=== PATIENT | female | born 1975 | race Caucasian/White ===

== ENCOUNTER 2021-10-05 10:46 | Outpatient (CLI) | payer MEDICARE, SELFPAY ==
--- NOTE | ~2021-10-05 | MR_ITS ---
EXAMINATION: MR brain/brain stem wo/w con DATE: 10/05/2021 11:39 INDICATION: Headache, unspecified. TECHNIQUE: Magnetic resonance imaging (MRI) of the brain and brainstem was performed without and with 20 mL MultiHance intravenous contrast. COMPARISON: None. FINDINGS: There are scattered areas of nonspecific increased T2-weighted signal intensity in the cere bral white matter and rebekah. There is no intracranial hemorrhage, acute infarction, or abnormal intrac ranial mass lesion. The ventricles are normal in size. There is mild mucosal thickening in sphenoid s inus. The mastoid air cells are normal. The orbits are normal. IMPRESSION: 1. Mild nonspecific cerebral white matter disease and pontine disease, which likely represents chroni c small vessel ischemic disease. Reviewed, dictated and finalized at location B. IMPRESSION: 1. Mild nonspecific cerebral white matter disease and pontine disease, which katja lin represents chronic small vessel ischemic disease.
[2021-10-05 11:16] LABS: Estimated Glomerular Filt Rate > 60
== END 2021-10-05 10:47 | disposition home or self-care (01) ==
LOC: ANHIMG 10:54
PROVIDERS: Visit Provider Psychiatry & Neurology Neurology
DX: R51.9 Headache, unspecified (principal); G89.29 Other chronic pain; R93.0 Abnormal findings on diagnostic imaging of skull and head, not elsewhere classified
CPT/HCPCS: 70553; A9577

== ENCOUNTER 2024-09-11 08:50 | Outpatient (CLI) | payer MEDICARE, SELFPAY ==
--- OUTSIDE RECORDS SUMMARY | 2024-09-11 09:16 | XMS_ITS | Encounter Summary ---
Author Organization [facility] Address [address] [place] [address] Care Team Providers Care Hogshead Filler Name Role Phone Gogo Perez MD Primary Care Provider [phone] Encounter Details Date Type Department Care Team (Late Contact Info) Description 02/23/2024 MyChart Message Enc [address] [address] Gogo Perez MD [address] [place] [address] Today s visit Social History Tobacco Use Types Packs/Day Years Used Date Smoking Tobacco: Every Day Cigarettes 1 25 Smokeless Tobacco: Never Comments:Last several years to currently smoking 1 cigarette a day. Alcohol Use Standard Drinks/Week Comments Yes 0 (1 standard drink = 0.6 oz pur e alcohol) Social drinker PHQ-2 Answer Date Recorded Patient Health Questionnaire-2 Score 1 02/23/2024 Comments No Sex and Gender Information Value Date Recorded Sex Assigned at Female 08/14/2024 11:33 AM CDT Legal Sex Female 7:56 PM CDT Gender Identity Not on file Sexual Orientation Not on file documented as of this encounter Plan of Treatment Upcoming Encounters Date Type Department Care Team (Late Contact Info) Description 09/25/2024 11:20 AM CDT Office Visit [address] [address] Gogo Perez MD [address] [place] [address] 12/28/2024 11:00 AM CDT Office Visit [facility] Multispecialty Care - [facility] [address] [facility] [address] [place] [address] Charlie Yates MD [address] [facility] [address] [place] [address] documented as of this encounter Visit Diagnoses Not on filedocumented in this encounter Additional Health Concerns Assessment Noted Time PHQ-9 Depression Total Score: 13 024 8:29 AM CDT documented as of this encounter Care Teams Hogshead Filler Relationship Specialty Start Date End Date Gogo Perez MD PCP - General FAMILY PRACTICE 05/20/22 documented as of this encounter
--- OUTSIDE RECORDS SUMMARY | 2024-09-11 09:16 | XMS_ITS | Clinical Summary ---
Author Organization [facility] Address [address] [place] [address] Care Team Providers Care Choir Member Name Role Phone Gogo Perez Primary Care Provider Dana lopez Source Comments [facility],non-owned Affiliates and Associated Physician Practices is amultiple site organization consisting of ambulatory clinics and hospital sitesin [place], [place], [place] and [place]. This disclosure is being madepursuant to the Care Everywhere program and may not contain all information available regarding this patient. Last updated 18.[facility] fflick Allergies Active Allergy Reactions Criticality Noted Date Comments Amoxicillin-Pot Clavulanate Dizziness 02/16/20 24 Codeine GI Discomfort 12/10/2018 Ibuprofen GI Discomfort 12/10/2018 Medications * Be aware that medications may not be up to date on this document. Alwaysverify current medications with the patient. Medication Sig Dispensed Refills Start Date End Date Status atenolol (Tenormin) 50 MG tablet Take 1 (one) tablet by mouth every 24 hours 04/02/2024 Active dicyclomine (Bentyl) 10 MG capsule Take 1 (one) capsule by mouth 2 times daily as needed 04/02/2024 Active famotidine (Pepcid) 20 MG tablet 1 (one) tablet 2 times daily Active potassium chloride ER (K-TAB) 20 MEQ tablet Take 1 (one) tablet by mouth once daily 04/02/2024 Active atorvastatin (Lipitor) 20 MG tablet Take 1 (one) tablet by mouth once daily 04/02/2024 Active chlorthalidone (Hygroton) 25 MG tablet Take 1 (one) tablet by mouth once daily 04/02/2024 Active lisinopril (Prinivil; Zestril) 20 MG tablet Take 1 (one) tablet by mouth once daily 04/02/2024 Active LORazepam (Ativan) 0.5 MG tablet Take 1 (one) tablet by mouth 3 times daily 07/15/2023 Active Encounters Date Type Department Care Team Description 08/13/2024 11:10 AM CDT Office Visit [facility] - LIVESTOCK YARD ATTENDANT [address] [place] [address] Lalit Rendon MD Well woman exam with routine gynecological exam (Primary Dx); Amenorrhea; Abdominal distension; Abnormal pelvic exam 08/13/2024 Travel 07/02/2024 Travel from Last 3 Months Family History Medical History Relation Name Comments CAD (Coronary Artery Disease) Father Diabetes - Type 2 Father High Cholesterol Father Hypertension Father Diabetes - Type 2 Mother High Cholesterol Mother Hypertension Mother Pulmonary Embolism Mother Relation Name Status Comments Father Mother Social History Tobacco Use Types Packs/Day Years Used Date Smoking Tobacco: Every Day Cigarettes Smokeless Tobacco: Never Tobacco Cessation:Ready to Q uit: Yes; Counseling Given: No Alcohol Use Standard Drinks/Week Comments Yes 0 (1 standard drink = 0.6 oz pur e alcohol) social Sex and Gender Information Value Date Recorded Sex Assigned at Not on file Gender Identity Not on file Sexual Orientation Not on file Last Filed Vital Signs Vital Sign Reading Time Taken Comments Blood Pressure 132/84 08/13/2024 11:13 AM CDT Pulse - - Temperature - - Respiratory Rate - - Oxygen Saturation - - Inhaled Oxygen Concentration - - Weight 117.8 kg (259 lb 9.6 oz) 025 11:13 AM CDT Height 152.4 cm (5') 08/13/2024 11:13 AM CDT Body Mass Index 50.7 08/13/2024 11:13 AM CDT Plan of Treatment Upcoming Encounters Date Type Department Care Team (Late st Contact Info) Description 09/14/2024 11:00 AM CDT Procedure visit [facility] - LIVESTOCK YARD ATTENDANT [address] [place] [address] Health Maintenance Due Date Last Done Comments COLOGUARD (AGES 45-75) - COLON CA SCREENING 1975 COLON MONITORING 1975 COLONOSCOPY - COLON CA SCREENING 1975 CT COLONOGRAPHY - COLON CA SCREENING 1975 Colorectal Cancer Screening 1975 FIT - COLON CA SCREENING 1975 FLEX SIG - COLON CA SCREENING 1975 MEDICARE AWV 12 MONTHS 1975 HIV SCREENING 1990 HEPATITIS C SCREENING 01/22/1993 DTAP/TDAP/TD VACCINES (1 - Tdap) 1994 HEPATITIS B VACCINE (1 of 3 - 19+ 3-dose series) 1994 COVID-19 VACCINE (5 - season) 2024 03/23/2022, 05/27/2021, 08/29/2020, Additional history exists DEPRESSION SCREENING 06/06/2024 SCREENING FOR DIABETES 08/13/2024 ZOSTER VACCINE (1 of 2) 2025 INFLUENZA VACCINE (Season Ended) 2025 MAMMOGRAM 03/15/2026 03/15/2024, 03/06, 01/14/2022, Additional history exists PAP with HPV 08/13/2029 08/13/2024 HIB VACCINE Aged Out No longer eligi ble based on patient's age to complete this topic HPV VACCINE Aged Out No longer eligi ble based on patient's age to complete this topic MENINGOCOCCAL (Group B) VACCINE SHARED DECISION-MAKING Aged Out No longer eligible based on patient's age to complete this topic MENINGOCOCCAL GROUPS A/C/Y/W VACCINE Aged Out No longer eligible based on patient's age to complete this topic Procedures Procedure Name Priority Date/Time Associated Diagnosis Comments PAP IMAGE-GUIDED W HPV Routine 08/13/2024 11:57 AM CDT Well woman exam with routine gynecological exam HPV PANEL Routine 08/13/2024 11:57 AM CDT Well woman exam with routine gynecological exam from Last 3 Months Results * PAP IMAGE-GUIDED W HPV (08/13/2024 11:57 AM CDT) Case Report Gynecologic Cytology Report Case: [id number] Authorizing Provider: Lalit Rendon MD Collected: 08/13/2024 11:57 AM Ordering Location: [facility] - Received: 08/14/2024 12:47 PM LIVESTOCK YARD ATTENDANT First Screen: Nicolas Atkinson CT(ASCP) Specimen: THINPREP - IMAGE GUIDED, Cervix/Endocervix 08/15/2024 11:59 AM CDT [facility] LMP n/a 08/15/2024 11:59 AM CDT [facility] Menstrual Status Postmenopausal 08/04 11:59 AM CDT [facility] Specimen Adequacy Satisfactory for evaluation, endocervical/trans formation zone component absent. 08/15/2024 11:59 AM CDT [facility] Categorization Negative for intraepithelial lesion or malignancy. 08/15/2024 11:59 AM CDT [facility] Interpretation SOFTWARE DEVELOPMENT LEADER Negative for intraepithelial lesion or malignancy. 08/15/2024 11:59 AM CDT [facility] Pap Footnote The Pap Smear is a screening test. False positive and false negative results occur. Negative results do not preclude abnormalities, thus clinical correlation is required. This specimen was evaluated by the ThinPrep Imaging System along with an additional manual rescreening by a supervisor plastics and/or pathologist. 08/15/2024 11:59 AM CDT [facility] Embedded Images 11:59 AM CDT [facility] Pathology/Cytolo gy MISCELLANEOUS SAMPLES / Unknown 08/13/2024 11:57 AM CDT 08/14/2024 12:47 PM CDT Lalit Rendon MD LAB - PATHOLOGY/CYTO LOGY ORDERABLES Performing Organization Address City/State/[facility] Co de Phone Number [facility] [address] [phone] * HPV PANEL (08/13/2024 11:57 AM CDT) High Risk HPV 16 NEGATIVE NEGATIVE 08/15/2024 1:08 AM CDT [facility] High Risk HPV 18 NEGATIVE NEGATIVE 08/15/2024 1:08 AM CDT [facility] High Risk HPV Other NEGATIVE NEGATIVE 08/15/2024 1:08 AM CDT [facility] Pathology/Cytolo gy MISCELLANEOUS SAMPLES / Unknown 08/13/2024 11:57 AM CDT 08/14/2024 12:47 PM CDT Narrative [facility] - 08/15/2024 1:08 AM CDT This test amplifies DNA of HPV16, HPV18 and twelve other high risk types (31, 33, 35, 39, 45, 51, 52, 56, 58, 59, 66, 68) without differentiation. A negative result does not preclude the presence of HPV infection because results depend on adequate specimen collection, absence of inhibitors and sufficient DNA to be detected. Results should be interpreted in conjunction with other available laboratory and clinical data. Lalit Rendon MD LAB - MICROBIOLOGY O RDERABLES [facility] [address] [place] [address], [facility] [phone] from Last 3 Months Care Teams Choir Member Relationship Specialty Start Date End Date Gogo Perez PCP - General 08/13/24
--- OUTSIDE RECORDS SUMMARY | 2024-09-11 09:16 | XMS_ITS | Clinical Summary ---
Author Organization [facility] Address [facility] [place] [address] Care Team Providers Care Door Framer Name Role Phone Gogo Perez MD Primary Care Provider Allergies Active Allergy Reactions Criticality Noted Date Comments Ibuprofen GI Upset 12/10/2018 Amoxicillin-Pot Clavulanate Dizziness 02/16/20 24 Codeine GI Upset 12/10/2018 Medications famotidine (PEPCID) 20 MG tablet 1 tablet (20 mg total) 2 (two) times daily. Active meclizine (ANTIVERT) 25 MG tablet 1 tablet (25 mg total). 11/29/19 Active chlorthalidone (HYGROTEN) 25 MG tabletIndications: Primary hypertension Take 1 tablet (25 mg total) by mouth daily. 90 tablet 3 04/02/20 Active atenolol (TENORMIN) 50 MG tabletIndications: Primary hypertension Take 1 tablet (50 mg total) by mouth daily. 90 tablet 3 04/02/20 Active potassium chloride CR (K-TAB) 20 MEQ tabletIndications: Primary hypertension,Hypok alemia Take 1 tablet (20 mEq total) by mouth daily. 30 tablet 8 04/02/20 Active atorvastatin (LIPITOR) 20 MG tabletIndications: Mixed hyperlipidemia Take 1 tablet (20 mg total) by mouth daily. 90 tablet 3 04/02/20 24 Active lisinopril (PRINIVIL) 20 MG tabletIndications: Primary hypertension Take 1 tablet (20 mg total) by mouth daily. 90 tablet 3 04/02/20 24 Active dicyclomine (BENTYL) 10 MG capsuleIndications :Irritable bowel syndrome, unspecified type Take 1 capsule (10 mg total) by mouth 2 (two) times daily as needed. 180 capsule 3 04/02/20 Active LORazepam (ATIVAN) 1 MG tablet 08/21/19 Active esomeprazole (NEXIUM) 20 MG capsule Take 1 capsule (20 mg total) by mouth 2 (two) times daily. Active LORazepam (ATIVAN) 0.5 MG tablet Take 1 tablet (0.5 mg total) by mouth 3 (three) times daily. 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 05/29/2024 Overview (05/29/2024): - pt wishes to speak with ANIA regarding freezing her eggs, referral placed to electrocardiograph technician Autoimmune hepatitis (CMS/HCC HHS/HCC) 4 Gastritis 02/16/2024 Generalized anxiety disorder with panic attacks 02/16/2024 Overview (08/22/2024): - currently sees psych and takes ativan 0.5 tid prn - states her counselor Karley has moved, pt plans to follow her to her new office - feels that anxiety is overall stable, continue to follow with psych Primary hypertension 02/16/2024 Overview (08/22/2024): - BP goal: less than 140/90 - BP controlled: Yes - Labs: UTD - Pt does use tobacco products, encouraged cessation if using tobacco products - Counseled regarding importance of lifestyle modification: healthy diet & regular exercise 30mins 3-5x weekly - RTC 3 month(s) - continue atenolol 50, chlorthalidone 25, and lisinopril 20. Subclinical hypothyroidism 02/16/2024 Overview (05/29/2024): - last TSH 6.0, normal FT4 in 01/2024 - will recheck RUTH (obstructive sleep apnea) 02/16/2024 Tobacco use 02/16/2024 Hiatal hernia 08/13/2008 IBS (irritable bowel syndrome) 08/13/2008 Encounters Date Type Department Care Team Description 08/22/2024 11:40 AM CDT Office Visit [address] [address] Gogo Perez MD Hypertension; Leg Pain (Pt was turning out light and felt a bubbly spasm on the back of her right calf, then felt a rip has some darkening on back of leg) 08/22/2024 Travel 08/14/2024 11:30 AM CDT Laboratory Only [address] [address] Gogo Perez MD 08/14/2024 - 08/14/2024 11:59 PM CDT Hospital Encounter [facility] [address] Gogo Perez MD Discharge Disposition: Home or Self Care (Routine Discharge) 08/14/2024 Travel 07/24/2024 [employer] Message Enc [address] [address] Gogo Perez MD Mouthwash pic 07/24/[address] [address] Gogo Perez MD Mass (Pt had a white pimple in mouth that was irritating her tooth, showed it to niece and it popped, pt states she has no pain except if touches the area, pt stated she will upload picture to my chart) 07/24/[address] [address] Gogo Perez MD Mass from Last 3 Months Immunizations Name Administration Dates Next Due Tdap (Generic) 08/09/2022 Family History Medical History Relation Comments Diabetes Brother Cancer Father Diabetes Father Heart Disease Father Hyperlipidemia Father Hypertension Father Other/LEUKEMIA Father Stroke Father Arthritis Maternal Grandmother Cancer Mother Cancer/PANCREAS Mother Diabetes Mother Hyperlipidemia Mother Hypertension Mother Relation Status Comments Brother Father Maternal Grandmother Mother Social History Tobacco Use Types Packs/Day Years Used Date Smoking Tobacco: Every Day Cigarettes 1 25 Smokeless Tobacco: Never Tobacco Cessation:Ready to Q uit: No; Counseling Given: Yes Comments:Last several years to currently smoking 1 cigarette a day. Alcohol Use Standard Drinks/Week Comments Yes 0 (1 standard drink = 0.6 oz pur e alcohol) Social drinker PHQ-2 Answer Date Recorded Patient Health Questionnaire-2 Score 0 08/22/2024 Comments No Sex and Gender Information Value Date Recorded Sex Assigned at Female 08/14/2024 11:33 AM CDT Legal Sex Female 7:56 PM CDT Gender Identity Not on file Sexual Orientation Not on file Last Filed Vital Signs Vital Sign Reading Time Taken Comments Blood Pressure 122/80 08/22/2024 11:37 AM CDT manual Pulse 89 08/22/2024 11:37 AM CDT Temperature 36.9 C (98.4 F) 08/22/2024 11:37 AM CDT Respiratory Rate 15 08/22/2024 11:3 7 AM CDT Oxygen Saturation 95% 08/22/2024 11: 37 AM CDT Inhaled Oxygen Concentration - - Weight 118.6 kg (261 lb 6.4 oz) 025 11:37 AM CDT Height 152.4 cm (5') 08/22/2024 11:37 AM CDT Body Mass Index 51.05 08/22/2024 11:37 AM CDT Plan of Treatment Upcoming Encounters Date Type Department Care Team (Late st Contact Info) Description 09/25/2024 11:20 AM CDT Office Visit [facility] Family Medicine - [address] [address] Gogo Perez MD [address] [place] [address] 12/28/2024 11:00 AM CDT Office Visit [facility] Multispecialty Care - [address] [place] [address] Charlie Yates MD [address] [place] [address] [address] [place] [address] Health Maintenance Due Date Last Done Comments Annual Physical 1978 Pneumococcal Vaccine: Pediatrics (0 to 5 Years) and At-Risk Patients (6 to 64 Years) (1 of 2 - PCV) 1981 Hepatitis C 1993 Hepatitis B Vaccines (1 of 3 - 19+ 3-dose series) 1994 COVID-19 Vaccine ( season) 2025 03/23/2022, 05/27/2021, 08/29/2020, Additional history exists Postponed from 02/05/2024 (Patient Refused) Mammogram Screening 03/15/2026 03/15/2024, 01/14/2022, 01/14/2022, Additional history exists Cervical Cancer Screening Pap Smear (Age 30 to 64) Every 3 Years 08/14/2027 08/13/2024 Cervical Cancer Screening Pap with HPV Testing (Age 30 to 64) Every 5 Years 08/13/2029 08/13/2024 Cervical Cancer Screening with HPV 08/13/2029 DTaP, Tdap and Td Vaccines (2 - Td or Tdap) 08/09/2032 08/09/2022 Colorectal Cancer Screening Colonoscopy (10 Years) 09/21/2032 09/21/2022, 09/21/2022, 04/10/2019, Additional history exists PHQ-2 (Physician [place]) Completed 08/22/2024 Meningococcal B Vaccine Aged Out No l onger eligible based on patient's age to complete this topic Meningococcal Vaccine Aged Out No zully phyllis eligible based on patient's age to complete this topic RSV Immunizations Under 20 Months Aged Out No longer eligible based on patient's age to complete this topic Procedures Procedure Name Priority Date/Time Associated Diagnosis Comments THYROXINE, FREE (FT4) Routine 08/14/2024 11:34 AM CDT TSH W/REFLEX Routine 08/14/2024 11:34 AM CDT Subclinical hypothyroidism COLLECTION VENOUS BLOOD VENIPUNCTURE Routine 08/14/2024 Subclinical hypothyroidism MG SCREENING W [place] SAMINA DIGI Routine 03/15/2024 2:10 PM CDT Encounter for screening mammogram for malignant neoplasm of breast COLONOSCOPY/EGD GENERIC (SCAN ORDER) 09/21/2022 from Last 3 Months or Most Recently Relevant to Health Maintenance Results * (ABNORMAL) TSH W/REFLEX (08/14/2024 11:34 AM CDT) TSH 5.796(H) 0.358 - 3.740 uIU/ML 08/14/2024 7:56 PM CDT [facility] 08/14/2024 11:3 4 AM CDT us Gogo Perez MD LABORATORY Final Result Performing Organization Address City/[facility]/ZIP Co de Phone Number [facility] [address] [place] [address], * THYROXINE, FREE (FT4) (08/14/2024 11:34 AM CDT) FREE T4 1.25 0.76 - 1.46 NG/DL 08/14/2024 9:21 PM CDT [facility] 08/14/2024 11:3 4 AM CDT us Gogo Perez MD LABORATORY Final Result [facility] [address] [place] [address], [id number] * COLLECTION VENOUS BLOOD VENIPUNCTURE (08/14/2024) us Gogo Perez MD PROCEDURES Final Result * MG SCREENING W [place] SAMINA DIGI (03/15/2024 2:10 PM CDT) Anatomical Region Laterality Modality Breast Bilateral Mammography 03/15/2024 3:59 PM CDT Impressions 03/15/2024 4:02 PM CDT ===== IMPRESSION: ===== 1. Stable mammographic appearance with no new findings to suggest malignancy in either breast. Assessment: ACR BI-RADS 2 - BENIGN FINDING(S) Recommendation: 1:Routine Screening Bilateral Comments: Ordered By: GOGO PEREZ Interpreted By: Aydin Monroy, 03/15/2024 3:59 PM Narrative 03/15/2024 4:02 PM CDT [facility] [place] [address] EXAMINATION: Digital bilateral screening mammogram with 3-D tomosynthesis EXAM DATE/TIME: 03/15/2024 1:50 PM REASON FOR EXAM: breast cancer screening COMPARISON: 01/08/2020. 01/14/2022 Technique: Digital screening mammography of both breasts was performed in addition to 3-D Tomosynthesis technique. This study was read with the assistance of a computer-aided detection system. Tissue density: There are scattered areas of fibroglandular density. Findings: There is no new focal asymmetry, dominant mass lesion, area of skin thickening, or cluster of suspicious appearing calcifications in either breast to suggest malignancy. Gogo Perez MD MAMMO Final Result * COLONOSCOPY/EGD GENERIC (SCAN ORDER) (09/21/2022) 09/21/2022 [facility] Scanned SCANNING Final Resu lt from Last 3 Months or Most Recently Relevant to Health Maintenance Insurance MEDICARE Care Teams Door Framer Relationship Specialty Start Date End Date Gogo Perez MD PCP - General FAMILY PRACTICE 05/20/22
--- OUTSIDE RECORDS SUMMARY | 2024-09-11 09:16 | XMS_ITS | Encounter Summary ---
Author Organization [facility] Address [address] [place] [address] Care Team Providers Care Assessment Expert Name Role Phone Gogo Perez MD Primary Care Provider [phone] Encounter Details Date Type Department Care Team (Late Contact Info) Description 07/24/2024 MyChart Message Enc [address] [address] Gogo Perez MD [address] [place] [address] Mouthwash pic Social History Tobacco Use Types Packs/Day Years Used Date Smoking Tobacco: Every Day Cigarettes 1 25 Smokeless Tobacco: Never Comments:Last several years to currently smoking 1 cigarette a day. Alcohol Use Standard Drinks/Week Comments Yes 0 (1 standard drink = 0.6 oz pur e alcohol) Social drinker PHQ-2 Answer Date Recorded Patient Health Questionnaire-2 Score 1 05/24/2024 Comments No Sex and Gender Information Value Date Recorded Sex Assigned at Female 08/14/2024 11:33 AM CDT Legal Sex Female 7:56 PM CDT Gender Identity Not on file Sexual Orientation Not on file documented as of this encounter Plan of Treatment Upcoming Encounters Date Type Department Care Team (Late Contact Info) Description 09/25/2024 11:20 AM CDT Office Visit [address] [address] Gogo Perez MD [address] [place] [address] 12/28/2024 11:00 AM CDT Office Visit [facility] Multispecialty Care - [facility] [address] [facility] [place] [address] Charlie Yates MD [address] [place] [address] documented as of this encounter Visit Diagnoses Not on filedocumented in this encounter Additional Health Concerns Assessment Noted Time PHQ-9 Depression Total Score: 12 024 11:37 AM CHIEF SECURITY AND SAFETY OFFICER documented as of this encounter Care Teams Assessment Expert Relationship Specialty Start Date End Date Gogo Perez MD PCP - General FAMILY PRACTICE 05/20/22 documented as of this encounter
--- NOTE | 2024-09-11 10:00 | NEURO_ITS ---
Impression: # Complains of numbness in?left hand. ? # Normal Nerve Conduction Study. ? # No Carpal Tunnel Syndrome or ulnar neuropathy. ? # Normal needle/EMG exam. ? # Clinical correlation recommended. Nerve Conduction Studies Anti Sensory Summary Table ?Stim Site NR Peak (ms) P-T Amp (?V) Site1 Site2 Delta-P (ms) Dist (cm) Wale (m/s) Left Median Anti Sensory (2-3nd Digit) Wrist ? 2.5 65.8 Wrist 2-3nd Digit 2.5 14.0 56 Wrist ? 2.5 91.8 Wrist 2-3nd Digit 2.5 14.0 56 Left Radial Anti Sensory (Base 1st Digit) Wrist ? 1.4 67.1 Wrist Base 1st Digit 1.4 0.0 Left Ulnar Anti Sensory (5th Digit) Wrist ? 2.0 67.4 Wrist 5th Digit 2.0 14.0 70 Motor Summary Table ?Stim Site NR Onset (ms) O-P Amp (mV) Site1 Site2 Delta-0 (ms) Dist (cm) Wale (m/s) Left Median Motor (Abd Poll Brev) Wrist ? 3.2 6.0 Elbow Wrist 4.0 26.0 65 Elbow ? 7.2 2.5 Left Ulnar Motor (Abd Dig Minimi) Wrist ? 2.2 7.0 A Elbow Wrist 4.4 29.0 66 A Elbow ? 6.6 6.5 B Elbow Wrist 3.1 21.0 68 B Elbow ? 5.3 6.4 F Wave Studies ?NR F-Lat (ms) L-R F-Lat (ms) Left Median (Mrkrs) (Abd Poll Brev) ? 24.43 Left Ulnar (Mrkrs) (Abd Dig Min) ? 23.86 EMG ?Side Muscle Nerve Root Ins Act Fibs Amp Dur Recrt Comment Left 1stDorInt Ulnar C8-T1 Nml Nml Nml Nml Nml Left Ext Indicis Radial (Post Int) C7-8 Nml Nml Nml Nml Nml Left Ext Digitorum Radial (Post Int) C7-8 Nml Nml Nml Nml Nml Left BrachioRad Radial C5-6 Nml Nml Nml Nml Nml Left PronatorTeres Median C6-7 Nml Nml Nml Nml Nml Left Abd Poll Brev Median C8-T1 Nml Nml Nml Nml Nml Left ABD Dig Min Ulnar C8-T1 Nml Nml Nml Nml Nml Left FlexPolLong Median (Ant Int) C7-8 Nml Nml Nml Nml Nml Left Abd Poll Long Radial (Post Int) C7-8 Nml Nml Nml Nml Nml MTDD
[2024-09-11 11:39] LABS: Folic Acid 5.1 ng/mL (2.76->20)
[2024-09-15 03:43] LABS: Methylmalonic Acid 309 nmol/L (55-335)
[2024-09-15 18:59] LABS: Vitamin D 1,25 (OH)2 Total 34 pg/mL (18-72); Vitamin D2 1,25 (OH)2 <8 pg/mL; Vitamin D3 1,25 (OH)2 34 pg/mL
== END 2024-09-11 08:51 | disposition home or self-care (01) ==
PROVIDERS: Visit Provider Psychiatry & Neurology Neurology
DX: E55.9 Vitamin D deficiency, unspecified (principal); R21 Rash and other nonspecific skin eruption; R42 Dizziness and giddiness; R51.9 Headache, unspecified; G89.29 Other chronic pain; E11.9 Type 2 diabetes mellitus without complications; G56.02 Carpal tunnel syndrome, left upper limb
CPT/HCPCS: 36415; 82607; 82652; 82746; 83921; 84443; 86038; 86039; 95886; 95909